=== PATIENT | male | born 1965 | race Caucasian/White ===

== ENCOUNTER 2016-12-10 09:52 | Emergency (ER) | payer OTHER ==
[~2016-12-10] VITALS: Ht 170.2 cm; Wt 81.4 kg
[~2016-12-10 09:52] MED LIST: CIPROFLOXACIN500 M1 PO; FLONASE16 G1 BOTH NARES; LISINOPRIL40 MG PO; METRONIDAZOLE500 MG PO; OMEPRAZOLE40 M1 PO
[2016-12-10 10:14] LABS: MCHC 33.6 G/DL (30.0-36.0); MCV 89.4 FL (86-99); MEAN PLAT.VOLUME 9.3 uM^3 (9.0-12.4); PLATELET COUNT 193 K/uL (156-360); RBC DIS.WIDTH-CV 12.7 % (11.8-14.6); RBC DIS.WIDTH-SD 41.5 % (39-53); RED BLOOD COUNT 5.26 M/uL (4.00-5.50); WHITE BLOOD COUNT 9.7 K/uL (4.1-10.2)
[2016-12-10 10:28] LABS: CHLORIDE 103 mEq/L (99-109); POTASSIUM 2.9 mEq/L (3.7-5.4); SODIUM 138 mEq/L (136-147)
[2016-12-10 10:30] LABS: GLUCOSE 161 mg/dL (70-99)
[2016-12-10 10:31] LABS: ANION GAP 12 MEQ/L (2-14)
[2016-12-10 10:32] LABS: TOTAL BILIRUBIN 1.8 mg/dL (0.0-1.0)
[2016-12-10 10:33] LABS: ALKALINE PHOSPHATASE 96 IU/L (3-129)
[2016-12-10 10:34] LABS: GFR ESTIMATE (CALCULATED) > 59 mL/min/
[2016-12-10 10:35] LABS: UREA NITROGEN (BUN) 14 mg/dL (9-23)
[2016-12-10 10:37] LABS: LIPASE 13 U/L (1.0-51.0)
[2016-12-10 11:43] LABS: ADD MIUA? YES; BILIRUBIN NEGATIVE; BLOOD SMALL; COLOR YELLOW ((YELLOW)); GLUCOSE (STRIP) NEGATIVE; KETONES 20; LEUKOCYTES NEGATIVE; NITRITE NEGATIVE; PROTEIN (STRIP) 30; SPECIFIC GRAVITY 1.028 (1.000-1.030); UROBILINOGEN 0.2 MG/DL (0.2-1.0)
[2016-12-10 11:54] LABS: BACTERIA NONE SEEN /HPF; EPITHELIAL CELLS RARE /HPF; MUCUS TRACE /LPF; UCUL ADDED? NO; WHITE BLOOD CELLS 0-5 /HPF (0-5)
[2016-12-10] MEDS ORDERED: ZOFRAN ODT8 MG PO (15:01)
[2016-12-10] MEDS ORDERED: BENTYL10 MG PO (15:01)
[2016-12-10 15:29] VITALS: BP 151/97
== END 2016-12-10 15:30 | disposition home or self-care (01) ==
LOC: EME 09:52
DX: R11.2 Nausea with vomiting, unspecified (principal); R10.31 Right lower quadrant pain; I10 Essential (primary) hypertension
CPT/HCPCS: 74176; 80053; 81003; 83690; 85027; 99281; 99283